=== PATIENT | male | born 1955 | race Caucasian/White ===

== ENCOUNTER 2024-03-28 16:03 | Outpatient (REF) | payer BC, SELFPAY ==
[2024-03-29 12:23] LABS: Influenza A PCR NEGATIVE (Negative); Influenza B PCR NEGATIVE (Negative); Resp Syncy Virus RNA Qual PCR NEGATIVE (Negative); SARS COV2 PCR INHOUSE NEGATIVE (Negative)
== END 2024-03-28 16:04 | disposition home or self-care (01) ==
LOC: HO.LNP 16:03
PROVIDERS: Visit Provider Physician Assistant
DX: J06.9 Acute upper respiratory infection, unspecified (principal); Z11.52 Encounter for screening for COVID-19; Z13.83 Encounter for screening for respiratory disorder NEC
CPT/HCPCS: 0241U

== ENCOUNTER 2024-03-28 16:03 | Outpatient (AMB) | payer BC, SELFPAY ==
--- NOTE | 2024-03-28 16:08 | AM.OFFWIN_ITS ---
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 Patient comes today because his cough has increased despite using an [id number] expectorant. Patient denies having any fevers but does describe having chills and fatigue. Review of Systems Const All systems reviewed & are unremarkable except as noted in HPI and below Denies body aches, Denies chills, Reports fatigue, Denies fever(s), Denies headache(s) and Denies weakness Eyes Reports no additional complaints ENT Reports no additional complaints and Denies headache(s) Card Denies chest pain, Denies dyspnea and Denies dyspnea on exertion Resp Reports cough, Denies hemoptysis, Denies dyspnea, Denies dyspnea on exertion and Denies wheezing GI Reports no additional complaints Reports no additional complaints Musc Reports no additional complaints Skin/Breast Reports system reviewed and no additional complaints, except as documented Neuro Reports no additional complaints, Denies headache(s) and Denies weakness Psych Reports no additional complaints Endo Reports no additional complaints and Reports fatigue Amos/Lymph Reports no additional complaints Aller/Immun Reports no additional complaints and Denies wheezing Physical Exam Patient is afebrile Const General: cooperative, healthy appearing, comfortable, no acute distress, well developed, alert, awake and Physically active; No ill appearing or lethargic Nutritional Appearance: average body habitus Orientation/consciousness: patient oriented x3 and No lethargic Limitations: no limitations HEENT Head: Yes normal to inspection and Yes normocephalic Ears: hearing grossly normal bilaterally, external ears normal, TM's normal bilaterally and EAC's normal General nose exam: Normal external nose present Face and sinus: Yes sinuses nontender Mouth: Normal oral and palatal mucosa present and moist mucous membranes Throat: Yes posterior oropharynx normal (There is no edema, erythema or exudates of the posterior oropharynx) and Yes postnasal drainage Eyes General: appearance normal, both eyes and all related structures Neck Lymphatic: no lymphadenopathy noted Resp Effort & Inspection: normal respiratory effort, able to speak in complete sentences, abnormal respiratory pattern, no audible wheezes, no cough, no respiratory distress and other (No tachypnea) Auscultation: clear to auscultation bilaterally Cardio Rate: regular rate Rhythm: regular rhythm Heart sounds: no murmurs Skin General skin exam: no rashes or lesions noted Neuro General: patient oriented x3 Psych Appearance: grossly normal Mental Status: mental status grossly normal Insight: Good insight present (Psych) Judgement: Good judgement present (Psych) Assessment & Plan Assessment & Plan (1) Bronchitis: Comment: SARS panel is ordered and results are pending. Code(s): J40 - Bronchitis, not specified as acute or chronic Plan: Mucinex OTC with increase clear fluids daily, tea with honey and rest as tolerated. Lungs are clear to auscultation bilaterally and chest x-ray is deferred at this time. Orders: Orders SARS-CoV2/FLU/RSV Today J06.9 - Acute upper respiratory infection, unspecified Coding Level of Care Code Est Pt Level 3 (70581) Diagnoses Bronchitis J40 Time Spent (min) 25
[2024-03-28 16:15] VITALS: BP 130/100; PULSE 68; TEMP 36.6; O2SAT 94
--- OUTSIDE RECORDS SUMMARY | 2024-03-28 18:08 | XMS_ITS | Encounter Summary ---
Author Organization [facility] [place] [address] Care Team Providers Care Surgical Territory Manager Name Role Phone Joe Quigley MD Primary Care Provider [phone] Encounter Details Date Type Department Care Team (Latest Contact Info) Description 03/22/2024 11:22 AM EST - 03/22/2024 11:59 PM [facility] Hospital Encounter XRAY - [place] [address] [place] [address] Neck pain Discharge Disposition: Home or Self Care Social History Tobacco Use Types Packs/Day Years Used Date Smoking Tobacco: Former Smokeless Tobacco: Never Alcohol Use Standard Drinks/Week Comments Not Currently 0 (1 standard drink = 0.6 oz pur e alcohol) Housing Instability Answer Date Recorde d Are you worried that in the next 2 months you may not have stable housing? No 01/26/2024 Food Access & Nutrition Answer Date Rec orded Do you have access to a vari ety of food including fruits and vegetables? Yes 01/26/2024 Access to Healthcare Answer Date Record ed Within the last 3 months, ho w many times did you visit the emergency department for your medical care? 0 01/26/2024 Health Literacy Answer Date Recorded How often do you need to hav e someone help you when you read instructions, pamphlets, or other written material from your doctor or pharmacy? Never 01/26/2024 Caregiver: How often do you need to have someone help you when you read instructions, pamphlets, or other written material from your doctor or pharmacy? Not on file 01/26/2024 Financial Risk Answer Date Recorded How hard is it for you to pa y for the very basics like food, housing, medical care, and air conditioning / heating? Not very hard 01/26/2024 Transportation Answer Date Recorded Has the lack of transportati on kept you from meetings, work, or from getting things needed for daily living? No Has the lack of transportati on kept you from medical appointments or from getting medications? No 01/26/2024 Social Isolation Answer Date Recorded How often do you feel lonely or isolated from th ose around you? Rarely 01/26/2024 Food Risk Answer Date Recorded Within the past 12 months we worried whether our food would run out before we got money to buy more. Never true 01/26/2024 Within the past 12 months th e food we bought just didn't last and we didn't have money to get more. Never true 01/26/2024 Dependent Care Answer Date Recorded Do you need help finding or paying for care for your loved ones. For example, children teacher or elderly care for an older adult? No 01/26/2024 Education Answer Date Recorded Do you think completing more education or training, like finishing a GED, going to college, or learning a trade, would be helpful for you? N/A 01/26/2024 Employment and Income Answer Date Recor ded During the last four weeks, have you been actively looking for work? Patient declined 01/26/2024 Living Situation Answer Date Recorded What is your living situation? 1 03/27/2023 Sex and Gender Information Value Date Recorded Sex Assigned at Not on file Gender Identity Not on file Sexual Orientation Not on file Job Start Date Occupation Industry Not on file Not on file Not on file documented as of this encounter Medications at Time of Discharge Medication Sig Dispensed Refills Start Date End Date atorvastatin (LIPITOR) 20 mg tablet Take 1 tablet (20 mg total) by mouth 1 (one) time each day. 90 tablet 3 01/30/2024 cyclobenzaprine (FLEXERIL) 5 mg tabletIndications:muscle spasm Take 1 tablet (5 mg total) by mouth 2 (two) times a day if needed for muscle spasms. 30 tablet 03/22/2024 05/21/2024 fluticasone propionate (FLONASE) 50 mcg/actuation nasal spray 2 Sprays by Nasal route daily. 12/23/2023 ibuprofen (ADVIL,MOTRIN) 600 mg tablet Take 1 tablet (600 mg total) by mouth 3 (three) times a day if needed for mild pain (pain). 60 tablet 03/22/2024 05/21/2024 lisinopriL (PRINIVIL,ZESTRIL) 5 mg tablet Take 1 tablet (5 mg total) by mouth 1 (one) time each day. 90 each 3 01/30/2024 01/29/2025 MULTIVITAMIN ORAL Take 1 Tablet by mouth daily. documented as of this encounter Discharge Disposition Disposition Code Departure Means Destination Home or Self Care documented in this encounter Plan of Treatment Upcoming Encounters Date Type Department Care Team (Late st Contact Info) Description 08/10/2024 9:00 AM EDT Office Visit Adult Medicine [facility] [place] [address] [place] [address] Joe Quigley MD [address] [place] [address] documented as of this encounter Procedures Procedure Name Priority Date/Time Associated Diagnosis Comments XR CERVICAL SPINE 4-5 VIEWS Routine 03/22/2024 11:39 AM EST Neck pain documented in this encounter Results * XR Cervical Spine 4-5 Views (03/22/2024 11:39 AM EST) Anatomical Region Laterality Modality Spine, C-spine Radiographic Nora ging 03/22/2024 7:43 PM EST Impressions 03/22/2024 7:48 PM EST 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 POS - [id number] -------- FINAL REPORT -------- Dictated By: Jumana Longoria Dictated Date: 03/22/2024 19:43 ET Assigned Physician: Jumana Longoria Reviewed and Electronically Signed By: Jumana Longoria Signed Date: 03/22/2024 19:48 ET Workstation ID: [id number] Transcribed By: Self Edit Transcribed Date: 03/22/2024 19:43 ET Narrative 03/22/2024 7:48 PM EST EXAM: Cervical spine x-ray HISTORY: Neck pain. ??No known injury. COMPARISON: None FINDINGS: 4 views performed. Cervical spine is visualized through the upper aspect of C7 on the lateral projection. No compression deformities. Intervertebral disc spaces are maintained. ??Multilevel facet arthropathy which is greater on the right. On the right, neural foraminal encroachment at C3-4 through C6-7. ??On the left, no significant neural foraminal encroachment. ?? Atlantoaxial distance is within normal limits. ??No abnormal thickening of the prevertebral soft tissues. Procedure Note Jumana Longoria MD - 03/22/2024 EXAM: Cervical spine x-ray HISTORY: Neck pain. No known injury. COMPARISON: None FINDINGS: 4 views performed. Cervical spine is visualized through the upper aspect of C7 on the lateralprojection. No compression deformities. Intervertebral disc spaces are maintained. Multilevel facet arthropathywhich is greater on the right. On the right, neural foraminal encroachment at C3-4 through C6-7. On theleft, no significant neural foraminal encroachment. Atlantoaxial distance is within normal limits. No abnormal thickening ofthe prevertebral soft tissues. IMPRESSION: Multilevel degenerative changes with right neural foraminalencroachment. POS - [id number] -------- FINAL REPORT -------- Dictated By: Jumana Longoria Dictated Date: 03/22/2024 19:43 ET Assigned Physician: Jumana Longoria Reviewed and Electronically Signed By: Jumana Longoria Signed Date: 03/22/2024 19:48 ET Workstation ID: [id number] Transcribed By: Self Edit Transcribed Date: 03/22/2024 19:43 ET Luciano Richey GEOLOGICAL TECHNICAL OFFICER IMG XR PROCEDURES documented in this encounter Visit Diagnoses Diagnosis Neck pain Cervicalgia documented in this encounter Additional Health Concerns Assessment Noted Time PHQ-9 Depression Total Score: 0 01/26/20 24 12:32 PM EST documented as of this encounter Care Teams Surgical Territory Manager Relationship Specialty Start Date End Date Joe Quigley MD [address] [place] [address] PCP - General Internal Medicine 01/07/15 documented as of this encounter
--- OUTSIDE RECORDS SUMMARY | 2024-03-28 18:08 | XMS_ITS | Clinical Summary ---
Author Organization [facility] [address] [place] [address] [address] [place] [address] Phone Care Team Providers Care Leaf Sucker Operator Name Role Phone Joe Quigley MD Primary Care Provider [phone] Allergies No known active allergies Medications Medication Sig Dispensed Refills Start Date End Date Status fluticasone propionate (FLONASE) 50 mcg/actuation nasal spray 2 Sprays by Nasal route daily. 12/23/2023 Active MULTIVITAMIN ORAL Take 1 Tablet by mouth daily. Active atorvastatin (LIPITOR) 20 mg tablet Take 1 tablet (20 mg total) by mouth 1 (one) time each day. 90 tablet 3 01/30/2024 Active lisinopriL (PRINIVIL,ZESTRIL) 5 mg tablet Take 1 tablet (5 mg total) by mouth 1 (one) time each day. 90 each 3 01/30/2024 01/29/2025 Active ibuprofen (ADVIL,MOTRIN) 600 mg tablet Take 1 tablet (600 mg total) by mouth 3 (three) times a day if needed for mild pain (pain). 60 tablet 03/22/2024 05/21/2024 Active cyclobenzaprine (FLEXERIL) 5 mg tabletIndications:mu scle spasm Take 1 tablet (5 mg total) by mouth 2 (two) times a day if needed for muscle spasms. 30 tablet 03/22/2024 05/21/2024 Active Active Problems Problem Noted Date Diagnosed Date Anemia 09/05/2023 Assessment & Plan (01/30/2024 10:07 AM EST): Recent history of mild anemia. Will follow CBC. Iron studies have been normal. B12 and folate were not low either. Orders: Complete blood count; Future Comprehensive metabolic panel; Future Thyroid stimulating hormone; Future Lipid panel with reflex to direct LDL; Future Benign prostatic hyperplasia without lower urinary tract symptoms 07/20/2022 Prostate nodule 07/20/2022 Near syncope 12/21/2021 Coronary artery disease invo lving [place] coronary artery of [place] heart with angina pectoris 09/01/2016 Overview (01/26/2024): Last Assessment & Plan: Patient continues to endorse symptoms reminiscent to those prior to his PCI in 2015. He did recently have a normal stress echocardiogram as outlined above. In light of his ongoing symptoms and significant history of coronary disease and family history, I will update a CTA to further evaluate for ischemia. He will continue on his current dose of statin and lisinopril. Patient instructed to call 911 or go to the emergency room should begin to experience chest pain or pressure lasting greater than 10 minutes and is not relieved with rest. We will update a resting echocardiogram to further evaluate for any valvular abnormalities. Elevated blood pressure reading 09/01/2016 Overview (01/26/2024): Last Assessment & Plan: Blood pressure well-controlled during today's exam with a reading of 138/82. He will continue on his current dose of lisinopril 20 mg. Educated on diet and lifestyle modification to help further lower blood pressure. Encouraged to follow a low- salt low-fat diet, make purposeful strides towards weight loss, and to continue to engage in routine aerobic exercise 30 minutes a day 4-5 times a week as tolerated. Assessment & Plan (01/30/2024 10:07 AM EST): Restart lisinopril at dose of 5mg, since he has not been taking lisinopril 20mg for 2 weeks. Orders: Complete blood count; Future Comprehensive metabolic panel; Future Thyroid stimulating hormone; Future Lipid panel with reflex to direct LDL; Future Hyperlipidemia 09/01/2016 Overview (01/26/2024): Last Assessment & Plan: Patient informed me that he recently saw his primary care physician Dr. Quigley. He has a fasting lipid profile ordered which the patient will complete this afternoon. Goal LDL less than 70 in the setting of coronary artery disease. He will continue on his current dose of Lipitor 20 mg and being mindful of his dietary fat intake. Assessment & Plan (01/30/2024 10:07 AM EST): Continue statin. Will check LFTs and Lipids. Orders: Complete blood count; Future Comprehensive metabolic panel; Future Thyroid stimulating hormone; Future Lipid panel with reflex to direct LDL; Future Encounters Date Type Department Care Team Description 03/22/2024 11:22 AM EST - 03/22/2024 11:59 PM EST Hospital Encounter [address] [phone] Neck pain Discharge Disposition: Home or Self Care 03/22/2024 11:00 AM EST Office Visit Adult [address] [phone] Luciano Richey NP Neck pain (Primary Dx) 01/30/2024 9:15 AM EST Office Visit Adult [address] [phone] Ike Gallardo PA Anemia, unspecified type (Primary Dx); Elevated blood pressure reading; Hyperlipidemia, unspecified hyperlipidemia type; Acute non-recurrent maxillary sinusitis 01/25/2024 Telephone Adult [address] [phone] Joe Quigley MD from Last 3 Months Immunizations Name Administration Dates Next Due Td, Unspecified 06/14/2003 Tdap Tetanus diptheria acell ular pertussis (Boostrix; Adacel) 7yo and older 04/04/2013 Surgical History Surgery Date Site/Laterality Comments OTHER SURGICAL HISTORY PROCEDURE: DENIES PREVIOUS SURGERY COLONOSCOPY 04/19/2005 PROCEDURE: HISTORICAL COLONOSCOPY; COMMENT: normal OTHER SURGICAL HISTORY 10/07/2016 PROCEDURE: COLON CA SCRN NOT HI RSK IND; COMMENT: normal; repeat in 10 yrs Medical History Medical History Date Comments H/O shoulder surgery 01/22/2015 DX:H/O shou lder surgery; COMMENT: After fall, Dr. Chavarria Family History Medical History Relation Name Comments Other: heart valve trouble Father M I as well Other: parkinson's disease Mother d ied at age 86 Relation Name Status Comments Brother Alive Father (Age 76) valvular h eart disease Mother (Age 86) parkinsons Sister 1 (Age 67) aaa Sister 2 choked Sister 3 Alive Sister 4 Alive Social History Tobacco Use Types Packs/Day Years Used Date Smoking Tobacco: Former Smokeless Tobacco: Never Tobacco Cessation:Counseling Given: Not Answered Alcohol Use Standard Drinks/Week Comments Not Currently [...] care for your loved ones. For example, childcare director or elderly care for an older adult? [...] file Not on file Not on file Obstetrics History Last Filed Vital Signs Vital Sign Reading Time Taken Comments Blood Pressure 140/84 03/22/2024 10:53 AM EST Pulse 84 03/22/2024 10:53 AM EST Temperature 36.6 ??C (97.9 ??F) 03/22/2024 10:[address] Respiratory Rate 16 03/22/2024 10:53 AM EST Oxygen Saturation 98% 01/30/2024 9:10 AM EST Inhaled Oxygen Concentration - - Weight 86.6 kg (191 lb) 03/22/2024 10:53 AM EST Height 188 cm (6' 2 ) 03/22/2024 10:53 AM EST Body Mass Index 24.52 03/22/2024 10:53 AM EST Plan of Treatment Upcoming Encounters Date Type Department Care Team (Late st Contact Info) Description 08/10/2024 9:00 AM EDT Office Visit Adult Medicine [facility] [address] [place] [address] Joe Quigley MD [address] [place] [address] Health Maintenance Due Date Last Done Comments Zoster Vaccines (1 of 2) 02/21/2004 Pneumococcal Vaccine: 65+ Years (1 of 1 - PCV) 2019 Falls Risk Assessment 02/13/2022 Medicare Annual Wellness Visit 02/13/2022 DTaP,Tdap,and Td Vaccines (3 - Td or Tdap) 04/04/2023 04/04/2013, 06/14/2003 COVID-19 Vaccine (4 - 2023-2 5 season) 2023 02/23/2021, 07/04/2020, 06/06/2020 Influenza Vaccine (#1) 2023 05/07/2019 Hypertension/CHF/CAD Annual BMP Blood Test 08/28/2024 08/29/2023, 08/29/2023 Depression Screening 01/25/2025 01/26/2024, 08/23/2023 Social Influencers of Health Screening 01/25/2025 01/26/2024 Colorectal Cancer Screening: Colonoscopy 10/07/2026 10/07/2016 Cholesterol Screening (Lipid Panel) 08/28/2028 08/29/2023, 08/29/2023 RSV Immunization Patients 60 + Years Old (1 - 1-dose 75+ series) 2029 Hepatitis C Screening Completed 04/04/2013 Abdominal Aortic Aneurysm (AAA) Screen Completed 05/29/2020 HIB Vaccines Aged Out No longer eligi ble based on patient's age to complete this topic HPV Vaccines Aged Out No longer eligi ble based on patient's age to complete this topic Hepatitis A Vaccines Aged Out No long er eligible based on patient's age to complete this topic Hepatitis B Vaccines Aged Out No long er eligible based on patient's age to complete this topic IPV Vaccines Aged Out No longer eligi ble based on patient's age to complete this topic MMR Vaccines Aged Out No longer eligi ble based on patient's age to complete this topic Meningococcal ACWY Vaccine Aged Out N o longer eligible based on patient's age to complete this topic RSV Immunization Patients Under 20 months Aged Out No longer eligible b ased on patient's age to complete this topic Varicella Vaccines Aged Out No longer eligible based on patient's age to complete this topic Procedures Procedure Name Priority Date/Time Associated Diagnosis Comments XR CERVICAL SPINE 4-5 VIEWS Routine 03/22/2024 11:39 AM EST Neck pain HM ANNUAL BMP BLOOD TEST Routine 08/29/2023 LIPID PANEL Routine 08/29/2023 DEPRESSION SCREENING Routine 08/23/2023 US ABDOMINAL AORTA REAL TIME SCREEN STUDY AAA Routine 05/29/2020 8:43 AM EDT Encounter for general adult medical examination without abnormal findings Encounter for screening for cardiovascular disorders COLONOSCOPY Routine 10/07/2016 HEPATITIS C SCREENING Routine 04/04/2013 from Last 3 Months or Most Recently Relevant to Health Maintenance Results * XR Cervical Spine 4-5 Views (03/22/2024 11:39 AM EST) Anatomical Region Laterality Modality Spine, C-spine Radiographic Nora ging 03/22/2024 7:43 PM EST Impressions 03/22/2024 7:48 PM EST 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 POS - [id number] -------- FINAL REPORT -------- Dictated By: Jumana Longoria Dictated Date: 03/22/2024 19:43 ET Assigned Physician: Jumana Longoria Reviewed and Electronically Signed By: Jumana Longoria Signed Date: 03/22/2024 19:48 ET Workstation ID: [id number] Transcribed By: Self Edit Transcribed Date: 03/22/2024 [...] changes with right neural foraminalencroachment. POS - [id number] -------- FINAL REPORT -------- Dictated By: Jumana Longoria Dictated Date: 03/22/2024 19:43 ET Assigned Physician: Jumana Longoria Reviewed and Electronically Signed By: Jumana Longoria Signed Date: 03/22/2024 19:48 ET Workstation ID: [id number] Transcribed By: Self Edit Transcribed Date: 03/22/2024 19:43 ET Luciano Richey NUCLEAR RADIOLOGIST IMG XR PROCEDURES * Annual BMP Blood Test (08/29/2023) [facility] Annual BMP Blood Test abstracted Historical Provider MD ODELL LI E * Lipid panel (08/29/2023) [facility] LDL/HDL Ratio 2 0 - 4 Triglycerides 37 0 - 150 mg/dL Cholesterol 119 0 - 200 mg/dL HDL 51 40 mg/dL LDL Cholesterol 61 0 - 100 mg/dL Blood Venous blood specimen / Unknown Historical Provider [facility] * Depression Screening (08/23/2023) [facility] Depression Screening abstracted Historical Provider MD ODELL LI E * US ABDOMINAL AORTA REAL TIME SCREEN STUDY AAA (05/29/2020 8:43 AM EDT) Anatomical Region Laterality Modality Ultrasound 05/01/2020 11:5 0 AM EST Narrative 05/29/2020 9:35 AM EDT History: Screening for abdominal aortic aneurysm. Ultrasound of the abdominal aorta: Some minimal atherosclerotic changes are noted. ??The abdominal aorta is otherwise normal in course, caliber and configuration. Proximal aortic AP diameter is 2.2 cm maximum. Mid aortic diameter is 1.8 cm, and distal aortic diameter is 1.6 cm. The common iliac arteries are normal in caliber as well. IMPRESSION: Negative screening examination for abdominal aortic aneurysm. Procedure Note Nader Bello MD - 02/23/2022 History: Screening for abdominal aortic aneurysm. Ultrasound of the abdominal aorta: Some minimal atherosclerotic changesare noted. The abdominal aorta is otherwise normal in course, caliber and configuration.Proximal aortic AP diameter is 2.2 cm maximum. Mid aortic diameter is 1.8 cm, and distalaortic diameter is 1.6 cm. The common iliac arteries are normal in caliber as well. IMPRESSION: Negative screening examination for abdominal aortic aneurysm. Joe Quigley MD IMG US PROCEDURES * Colonoscopy (10/07/2016) Colonoscopy no interpretation , abstracted Anatomical Region Laterality Modality Other Historical Provider MD BAIN MAINMEGAN E * Hepatitis C Screening (04/04/2013) Hepatitis C Screening abstracted Historical Provider MD BAIN MAINTENMELVINA E from Last 3 Months or Most Recently Relevant to Health Maintenance Care Teams Leaf Sucker Operator Relationship Specialty Start Date End Date Joe Quigley MD [address] [facility] [place] [address] PCP - General Internal Medicine 01/07/15
--- OUTSIDE RECORDS SUMMARY | 2024-03-28 18:08 | XMS_ITS | Data Portability ---
Author Organization [facility], [address] Address [address] [place] [address] Care Team Providers Care Mexican Food Maker Hand Name Role Phone [facility] Care Provider Assessment No assessment recorded. Plan of Treatment Reminders Order Date Submit Date Provider Last Modified By Organization Details Last Modified Time Details Appointments None recorded. Lab None recorded. Referral None recorded. Procedures None recorded. Surgeries None recorded. Imaging XR, chest, 2 view 2022 023 [facility], [address] [place] [address], [address], 3 16:24:21 Medication Orders azithromyci n 250 mg tablet 2022 023 [facility]acy #2339, [address] [place] [address], [address], 3 14:48:39 albuterol sulfate HFA 90 mcg/actuati on aerosol inhaler 2022 023 [facility] #2339, [address] [place], [address], 3 14:48:39 Tessalon Perles 100 mg capsule 2022 023 [facility] #2339, [address] [place], [address], 3 14:48:39 Patient TargetsNo targets recorded. Patient Instructions Encounter Date Encounter Id Patient Instructions Last Modified By Organization Details Last Modified Time 03/20/2022 [id number] cough: care instructions [email or web address] Not available 03/20/2022 14:47:19 Reason for Referral None Reported. Results Created Date Observation Date Name Description Value Unit Range Abnormal Flag Note LastModifiedBy Organization Detail LastModifiedTime 03/20/19 23 03/20/2022 XR, chest , 2 view No observ ation record ed. [email or web address] [facility] [address] [place], [address], 03/20/2022 17:12:27 03/22/19 imagi ng/di agnos tic resul t No observ ation record ed. [email or web address] Not Available 2022 08:58:16 Result Notes None recorded. Problems Name Problem SNOMED Code Status Onset Date Resolution Date Notes Provider Name and Address Organization Details Recorded Time Hypercholestero lemia 68546622 Active 2022 NADJA DEPINTO null, PA - [facility] 3 14:20:41 Hypertensive disorder 45257214 Active 2022 NADJA DEPINTO null, PA - [facility] 3 14:21:06 Problem Notes None recorded. Procedures Surgical History Date Name Laterality Status Provider Name and Address Organization Details Recorded Time procedure on shoulder completed NADJA DEPINTO PA - [facility] 03/20/2022 14:21:32 Imaging Results Imaging Date Name Status LastModified by Organiz ation Details LastModified Time 03/20/2022 XR, chest, 2 view completed [email or web address] [facility] [address] [place], [address], 03/20/2022 17:12:27 03/22/2022 imaging/diag nostic result completed [email or web address] Information not available 03/22/2022 08:58:16 Procedure Notes None recorded. Medical Equipment None Reported. Allergies No known drug allergies Medications Name Sig Start Date Stop Date Status Note LastModified by Organization Details LastModified Time atorvastati n 20 mg tablet TAKE 1 TABLET BY MOUTH EVERY DAY active Not Available Not Available No t Available azithromyci n 250 mg tablet TAKE 2 TABLETS (500 MG) BY ORAL ROUTE ONCE DAILY FOR 1 DAY THEN 1 TABLET (250 MG) BY ORAL ROUTE ONCE DAILY FOR 4 DAYS 2022 active Not Available Not Available Not Avai lable lisinopril 20 mg tablet TAKE 1 TABLET BY MOUTH EVERY DAY active Not Available Not Available No t Available prednisone 20 mg tablet TAKE 1 TABLET BY MOUTH EVERY DAY 03/20 completed Not Available Not Available Not Available doxycycline monohydrate 100 mg tablet TAKE 1 TABLET BY MOUTH TWICE A DAY FOR 7 DAYS 03/20 completed Not Available Not Available Not Available Tessalon Perles 100 mg capsule Take 1 capsule 3 times a day by oral route. 2022 active Not Available Not Available Not Avai lable albuterol sulfate HFA 90 mcg/actuati on aerosol inhaler Inhale 2 puffs every 4 hours by inhalatio n route. 2022 active Not Available Not Available Not Avai lable fluticasone propionate 50 mcg/actuati on nasal spray,suspe nsion SPRAY 1 SPRAY INTO EACH NOSTRIL EVERY DAY 03/20 completed Not Available Not Available Not Available Vitals Date Recorded Body height Provider Name an d Address Organization Details Last Updated DateTime 03/20/2022 182.88 cm NADJA DEPINTO PA - [facility] 0 03/20/2022 14:19:12 Date Recorded Body mass index (BMI) Body weight Provider Name and Address Organization Details Last Updated DateTime 03/20/2022 26 kg/m2 53916.74 g NADJA DEPINTO PA - [facility] 03/20/2022 14:19:20 Date Recorded Pain severity - 0-10 verbal numeric rating [Score] - Reported Provider Name and Address Organization Details Last Updated DateTime 03/20/2022 0 NADJA DEPINTO PA - [facility] 0 03/20/2022 14:19:57 Date Recorded Body temperature Provider Name a nd Address Organization Details Last Updated DateTime 03/20/2022 97.6 [degF] NADJA DEPINTO PA - [facility] 03/20/2022 14:22:28 Date Recorded Respiratory rate Provider Name a nd Address Organization Details Last Updated DateTime 03/20/2022 18 /min NADJA DEPINTO PA - [facility] 0 03/20/2022 14:22:30 Date Recorded Oxygen saturation Oxygen saturation in Arterial blood by Pulse oximetry Provider Name and Address Organization Details Last Updated DateTime 03/20/2022 99 % 99 % NADJA PALMA PA - [facility] 03/20/2022 14:22:57 Date Recorded Heart rate Provider Name an d Address Organization Details Last Updated DateTime 03/20/2022 84 /min NADJA PALMA PA - [facility] 0 03/20/2022 14:22:59 Date Recorded Systolic blood pressure Diastolic blood pressure Provider Name and Address Organization Details Last Updated DateTime 03/20/2022 170 mm[Hg] 89 mm[Hg] NADJA PALMA PA - [facility] 03/20/2022 14:22:51 Social History Question Answer Notes LastModified by Organizat ion Details LastModified Time Tobacco Smoking Status Never Smoker NADJA LOUIE merrill PA - [facility] 03/20/2022 14:21:41 What Is Your Level Of Alcohol Consumption? None Information not available 03/20/2022 Do You Use Any Illicit Or Recreational Drugs? No Information not available 03/20/2022 Have You Recently Traveled Abroad? No Information not available 03/20/2022 Do You Or Have You Ever Used Any Other Forms Of Tobacco Or Nicotine? No Information not available 03/20/2022 Sex: Unknown Functional Status None recorded. Mental Status None recorded. Family History Relationship Description Onset Age of this Age Resolved Age Notes LastModified by Organization Details LastModified Time Father No current problems or disability Not available 03/20 14:21:22 Mother No current problems or disability Not available 03/20 14:21:22 Medical History No medical history recorded. Immunizations Vaccine Type Date Status Note Provider Nam e and Address Organization Details Recorded Time COVID-19, mRNA, LNP-S, PF, 100 mcg/0.5mL dose or 50 mcg/0.25mL dose 02/23/2021 completed NADJA LOUIE garfield, PA - [facility] 03/20/2022 14:20:01 COVID-19, mRNA, LNP-S, PF, 100 mcg/0.5mL dose or 50 mcg/0.25mL dose 07/04/2020 completed NADJA DEPINTO null, PA - [facility] 03/20/2022 14:20:01 COVID-19, mRNA, LNP-S, PF, 100 mcg/0.5mL dose or 50 mcg/0.25mL dose 06/06/2020 completed NADJA DEPINTO null, PA - [facility] 03/20/2022 14:20:01 Tdap 04/04/2013 completed NADJA DEPINTO null, PA - [facility] 03/20/2022 14:20:01 Influenza, high-dose, trivalent, PF 05/07/2019 completed NADJA DEPINTO null, PA - [facility] 03/20/2022 14:20:01 Td(adult) unspecified formulation 06/14/2003 completed NADJA DEPINTO null, PA - [facility] 03/20/2022 14:20:01 Past Encounters Encounter ID Performer Location Encounter Start Date Encounter Closed Date Diagnosis/Indication Diagnosis SNOMED-CT Code Diagnosis ICD10 Code Diagnosis Note [id number] [address] [place] [address] 02/18/2017 08:44:04 02/18/2017 09:08:19 [id number] [address] [place] [address] 02/27/2019 12:21:22 02/27/2019 13:37:50 [id number] [address] [place] [address] 02/03/2017 09:22:09 02/03/2017 09:57:40 [id number] [address] [place] [address] 01/06/2016 12:32:40 01/06/2016 13:40:27 [id number] [address] [place] [address] 04/27/2016 10:03:01 04/27/2016 10:53:55 [id number] [address] [place] [address] 01/06/2016 12:36:13 01/06/2016 13:40:31 [id number] Andrea Lim DO [address] [place] [address] 03/20/2022 13:40:24 03/20/2022 15:24:27 Cough [id number] R05.9 Given Hx and Sx will Rx Abx and albuterol Rodrigo malik prn coughTrial of mucinex prn congestion Humidified airrest, fluidstyle nol/ibu prn Patient advised to follow up as needed for worsening symptoms or no improvemen t. Discussed concerning red flags with patient and reasons to follow up in the Emergency Department urgently. Health Concerns Section Related Observation LastModified by Organization Detai ls LastModified Time None Recorded Concern Status LastModified by Organization Details LastModified Time None Recorded Advance Directives Directive None Recorded Payers Encounter Date Sequence Insurance Name Policy Number Policy Samuel Covered Member ID Samuel Member ID Guarantor Name 02/27/2019 1 [facility]: MEDICARE HMO BLUE (MEDICARE REPLACEMENT HMO) [id number] [facility] [id number] 03/20/2022 1 [facility]: MEDICARE HMO BLUE (MEDICARE REPLACEMENT HMO) [id number] [facility] [id number] [facility] Notes Date Note Type Note Provider Name and Address Organization Details Recorded Time 03/20/2022 text/html CoughReported bypatient.Notes:67 yo maleHad sinus problems 1 wk ago that went away and now has cough with brown phlegm, weak and congestion x 5 days. Had neg COVID yesterday at home repeat BP 164/81 non [place] asthma No feverNo chillsNo difficulty breathing or respiratory distressNo CPNo ear painNo sore throatNo Abdominal painNo nauseaNo vomitingNp diarrheaNo myalgiaNo fatigueNo rashNo HANo dizzinessNo recent travelNo known sick contacts Andrea Lim DO [address] [place], [address], PA - [facility] 03/20/2022 15:11:37
--- OUTSIDE RECORDS SUMMARY | 2024-03-28 18:08 | XMS_ITS | Encounter Summary ---
Author Organization [facility] Address [address] [place] [address] Care Team Providers Care Fly Frame Tender Name Role Phone Joe Quigley MD Primary Care Provider [phone] Encounter Details Date Type Department Care Team (Late st Contact Info) Description 03/22/2024 11:00 AM EST Office Visit Adult Medicine [facility] [place] [address] [place], [place] [phone] Luciano Richey, LEARNING MANAGER [address] [place], [place] Neck pain (Primary Dx) Social History Tobacco Use Types Packs/Day Years [...] care for your loved ones. For example, assistant child care teacher or elderly care for an older [...] on file documented as of this encounter Last Filed Vital Signs Vital Sign Reading Time Taken Comments Blood Pressure 140/84 03/22/2024 10:53 AM EST Pulse 84 03/22/2024 10:53 AM EST Temperature 36.6 ??C (97.9 ??F) 03/22/2024 10:[address] Respiratory Rate 16 03/22/2024 10:53 AM EST Oxygen Saturation - - Inhaled Oxygen Concentration - - Weight 86.6 kg (191 lb) 03/22/2024 10:53 AM EST Height 188 cm (6' 2 ) 03/22/2024 10:53 AM EST Body Mass Index 24.52 03/22/2024 10:53 AM EST documented in this encounter Ordered Prescriptions Prescription Sig Dispensed Refills Start Date End Da te cyclobenzaprine (FLEXERIL) 5 mg tabletIndications:muscle spasm Take 1 tablet (5 mg total) by mouth 2 (two) times a day if needed for muscle spasms. 30 tablet 03/22/2024 05/21/2024 ibuprofen (ADVIL,MOTRIN) 600 mg tablet Take 1 tablet (600 mg total) by mouth 3 (three) times a day if needed for mild pain (pain). 60 tablet 03/22/2024 05/21/2024 documented in this encounter Progress Notes * Cristopher Sawyer MA - 03/22/2024 11:00 AM EST Right said neck and shoulder pain for 1 month. Would like for you to listen to lungs as well * Luciano Richey NP - 03/22/2024 11:00 AM EST PATIENT'S PCP: Joe Quigley MD LAST VISIT IN THIS DEPARTMENT: 01/30/2024 Daryn Shaver is a 69 y.o. (: 1955) male who presents today for: No chief complaint on file. SUBJECTIVE Daryn complains of neck pain that began 1 month ago. Patient has no history of episodic neck pain or cervical disease that has been self limited. Symptoms have been unchanged. The pain is positional with movement of neck with radiation of pain down to the shoulder. Patient denies numbness, tingling, weakness in the arms. ROS Review of Systems Constitutional: Negative. Respiratory: Negative. Cardiovascular: Negative. Musculoskeletal: Positive for neck pain. Skin: Negative. Neurological: Negative. Hematological: Negative. The following portions of the patient's chart were reviewed in this encounter and updated as appropriate: OBJECTIVE Vitals: 03/22/24 1053 BP: (!) 140/84 BP Location: Left arm Patient Position: Sitting BP Cuff Size: Adult Pulse: 84 Resp: 16 Temp: 36.6 ??C (97.9 ??F) TempSrc: Temporal Weight: 86.6 kg (191 lb) Height: 1.88 m (74 ) Body mass index is 24.52 kg/m??. Plan is deferred until next visit No Known Allergies Active Medication: Current Outpatient Medications Medication Instructions atorvastatin (LIPITOR) 20 mg, oral, Daily cyclobenzaprine (FLEXERIL) 5 mg, oral, 2 times daily PRN fluticasone propionate (FLONASE) 50 mcg/actuation nasal spray 2 Sprays by Nasal route daily. ibuprofen (ADVIL,MOTRIN) 600 mg, oral, 3 times daily PRN lisinopriL (PRINIVIL,ZESTRIL) 5 mg, oral, Daily MULTIVITAMIN ORAL Take 1 Tablet by mouth daily. Physical Exam Vitals reviewed. Constitutional: Appearance: Normal appearance. HENT: Head: Normocephalic and atraumatic. Cardiovascular: Rate and Rhythm: Normal rate and regular rhythm. Pulses: Normal pulses. Heart sounds: Normal heart sounds. Pulmonary: Effort: Pulmonary effort is normal. Breath sounds: Normal breath sounds. Musculoskeletal: General: Tenderness present. Normal range of motion. Cervical back: Normal range of motion and neck supple. Pain with movement present. Comments: Right side neck pain Skin: General: Skin is warm and dry. Neurological: General: No focal deficit present. Mental Status: He is alert and oriented to person, place, and time. Imaging HISTORY: pay sttention to acromium TECHNIQUE: 4 views of the left shoulder COMPARISON: Shoulder radiograph from 04/23/2013 FINDINGS: No acute fracture or dislocation at the shoulder. There are large osteophytes along the distal clavicle with moderate narrowing at the AC joint. Focal calcifications are present superior to the distal clavicle likely from degenerative changes. There is spurring along the undersurface of the acromion. Visualized lung is clear. IMPRESSION: Moderate degenerative changes at the AC joint. Laboratory: No pertinent labs Assessment & Plan Neck pain Patient is to rest the injured area as much as possible. Also recommend using warm moist heat to further help with muscle relaxation. Xray of the Cervical spine order Prescription for Pain & Inflammation Tx: Ibuprofen 600 mg orally every 6-8 hours, PRN, Max 2400mg/day, and Cyclobenzaprine 5 mg orally 3 times daily PRN, for back spasm. We discussed the drowsing effect of medication and cautioned the patient not to drive/operate any heavy machinery while on medication. was given to the patient. Patient was educated over the adverse effects of these medicatio ns. I instructed the patient that we will attempt conservative therapy for 2-3 weeks. I instructed the patient to make an appt to follow up if no improvement or worsening after that time. May consider referral at that time to Physical Therapy and Orthopedic for further evaluation and treatment. Orders: cyclobenzaprine (FLEXERIL) 5 mg tablet; Take 1 tablet (5 mg total) by mouth 2 (two) times a day if needed for muscle spasms. XR Cervical Spine 2-3 Views; Future FOLLOW-UP: Follow up if symptoms worsen or fail to improve. Luciano Richey NP ADULT MEDICINE [address] Today's documentation was made using voice recognition software.This note may contain grammatical errors secondary to this software. documented in this encounter Plan of Treatment Upcoming Encounters Date Type Department Care Team (Late st Contact Info) Description 08/10/2024 9:00 AM EDT Office Visit [address] [phone] Joe Quigley MD [address] [place] [address] documented as of this encounter Visit Diagnoses Diagnosis Neck pain- Primary Cervicalgia documented in this encounter Additional Health Concerns Assessment Noted Time PHQ-9 Depression Total Score: 0 01/26/20 24 12:32 PM EST documented as of this encounter Care Teams Fly Frame Tender Relationship Specialty Start Date End Date Joe Quigley MD [address] [place] [address] PCP - General Internal Medicine 01/07/15 documented as of this encounter
== END 2024-03-28 16:32 | disposition home or self-care (01) ==
PROVIDERS: Visit Provider Physician Assistant
DX: J40 Bronchitis, not specified as acute or chronic (principal)

== ENCOUNTER 2024-08-27 09:39 | Outpatient (REF) | payer BC, SELFPAY ==
--- NOTE | ~2024-08-27 | US_ITS ---
CLINICAL HISTORY: TIA US Bilateral Carotid Duplex Comparison: None provided Findings: No significant plaque within the common carotid arteries. No significant plaque within the carotid bulbs. Color doppler and spectral tracings normal. Peak systolic velocities: Right CCA: 107 cm/s. Right ICA: 113 cm/s. ICA/CCA ratio: Normal. Right ECA: 109 cm/s. Right vertebral artery flow antegrade. Right subclavian artery: 106 cm/sec Left CCA: 117 cm/s. Left ICA: 104 cm/s. ICA/CCA ratio: Normal. Left ECA: 110 cm/s. Left vertebral artery flow antegrade. Left subclavian artery: 117 cm/sec IMPRESSION: Normal carotid velocities, no significant stenosis (0-49% stenosis). This document has been electronically signed by: Cecilia Vargas MD on 08/28/2024 15:29:07
--- OUTSIDE RECORDS SUMMARY | 2024-08-27 10:25 | XMS_ITS | Data Portability ---
Author Organization [facility], [address] Address [address] [place] [address] Care Team Providers Care Director Mba Name Role Phone [facility] Care Provider Assessment No assessment recorded. Plan of Treatment Reminders Order Date Submit Date Provider Last Modified By Organization Details Last Modified Time Details Appointments None recorded. Lab None recorded. Referral None recorded. Procedures None recorded. Surgeries None recorded. Imaging XR, chest, 2 view 2022 023 [facility], [address] [place] [address], [address], 3 16:24:21 Medication Orders azithromyci n 250 mg tablet 2022 023 [facility] #2339, [address] [place], [address], 3 14:48:39 albuterol sulfate HFA 90 mcg/actuati on aerosol inhaler 2022 023 [facility] #2339, [address] [place], [address], 3 14:48:39 Tessalon Perles 100 mg capsule 2022 023 [facility] #2339, [address] [place], [address], 3 14:48:39 Patient TargetsNo targets recorded. Patient Instructions Encounter Date Encounter Id Patient Instructions Last Modified By Organization Details Last Modified Time 03/20/2022 [id number] cough: care instructions [email or web address] Not available 03/20/2022 14:47:19 Reason for Referral None Reported. Results Created Date Observation Date Name Description Value Unit Range Abnormal Flag Note LastModifiedBy Organization Detail LastModifiedTime 03/20/19 23 03/20/2022 XR, chest , 2 view No observ ation record ed. [email or web address] [facility] [address] [place], [address], 03/20/2022 17:12:27 03/22/19 23 imagi ng/di agnos tic resul t No observ ation record ed. [email or web address] Not Available 2022 08:58:16 Result Notes None recorded. Problems Name Problem SNOMED Code Status Onset Date Resolution Date Notes Provider Name and Address Organization Details Recorded Time Hypercholestero lemia 20249912 Active 2022 NADJA DEPINTO null, PA - [facility] 3 14:20:41 Hypertensive disorder 23449581 Active 2022 NADJA DEPINTO null, PA - [facility] 3 14:21:06 Problem Notes None recorded. Procedures Surgical History Date Name Laterality Status Provider Name and Address Organization Details Recorded Time procedure on shoulder completed NADJA SINAIINTO PA - [facility] 03/20/2022 14:21:32 Imaging Results None recorded. Procedure Notes None recorded. Medical Equipment None [...] Not Available Vitals Date Recorded Body height Body mass index (BMI) Body weight Body temperature Respiratory rate Oxygen saturation Oxygen saturation in Arterial blood by Pulse oximetry Heart rate Systolic blood pressure Diastolic blood pressure Provider Name and Address Organization Details Last Updated DateTime 182.88 cm 26 kg/m2 16467.7 4 g 97.6 [degF] 18 /min 99 % 99 % 84 /min 170 mm[Hg] 89 mm[Hg] NADJA PALMA [employer] 14:22:51 Social History Question Answer Notes LastModified by meevl Details LastModified Time Tobacco Smoking Status Never Smoker NADJA merrill [facility] 03/20/2022 14:21:41 Have You Recently Traveled Abroad? No Information not available 03/20/2022 Sex: Unknown Functional Status Question Answer Note LastModified by meevl Details LastModified Time Do you use any illicit or recreational drugs? No Information not available 03/20/2022 Do you or have you ever used any other forms of tobacco or nicotine? No Information not available 03/20/2022 What is your level of alcohol consumption? None Information not available 03/20/2022 Mental Status None recorded. Family History Relationship [...] or 50 mcg/0.25mL dose 02/23/2021 completed [facility] DEPINTO null, [facility] [...] SNOMED-CT Code Diagnosis ICD10 Code Diagnosis Note [id number] [address] [facility] [place] [address] 02/18/2017 08:44:04 02/18/2017 09:08:19 [id number] [address] [address] [place] [address] 02/27/2019 12:21:22 02/27/2019 13:37:50 [id number] [address] [address] [place] [address] 02/03/2017 09:22:09 02/03/2017 09:57:40 [id number] [address] [place] [address] 01/06/2016 12:32:40 01/06/2016 13:40:27 [id number] [address] [facility] [place] [address] 04/27/2016 10:03:01 04/27/2016 10:53:55 [id number] [facility] [place] [address] 01/06/2016 12:36:13 01/06/2016 13:40:31 [id number] Andrea Lim DO [facility] [address] [place] [address] 03/20/2022 13:40:24 03/20/2022 15:24:27 Cough [id number] R05.9 Given Hx and Sx will Rx [...] Recorded Advance Directives Directive None Recorded Payers Insurance Date Sequence Insurance Name Policy Number Policy Samuel Covered Member ID Samuel Member ID Guarantor Name 03/20/[address] [facility]: MEDICARE HMO BLUE (MEDICARE REPLACEMENT HMO) [id number] Daryn Shaver [id number] D[address] Shaver Notes Date Note Type Note Provider Name [...] dizzinessNo recent travelNo known sick contacts Andrea Lim, DO [address] [place], [address], [place] - [facility] 03/20/2022 15:11:37
== END 2024-08-27 09:40 | disposition home or self-care (01) ==
LOC: HO.US 09:39
PROVIDERS: PCP Internal Medicine; Visit Provider Psychiatry & Neurology Neurology
DX: G45.9 Transient cerebral ischemic attack, unspecified (principal)
CPT/HCPCS: 93880

== ENCOUNTER → 2024-08-27 09:56 | Outpatient (BNV) | payer BC, SELFPAY | PROVIDERS: PCP Internal Medicine; Visit Provider Radiology Diagnostic Radiology | DX: G45.9 Transient cerebral ischemic attack, unspecified (principal) | CPT/HCPCS: 93880 ==

== ENCOUNTER 2024-10-30 10:47 | Outpatient (AMB) | payer BC, SELFPAY ==
--- NOTE | 2024-10-30 11:03 | A.OFFVIS_ITS ---
Intake Visit Reasons: follow up Allergies No Known Allergies Allergy (Verified 03/28/24 16:16) HPI Comments Details: This is a 69-year-old man with a history of mild hypertension, hyperlipidemia, and coronary artery disease, status post coronary stent x1 in 2013.? He stays active, runs 4 days a week and is in the gym 3 days a week and does 100 pushups in the morning? ( 25 X4).? 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 He reports that in the last one year, he's had 4 or 5 very brief episodes lasting less than 45 seconds, where he suddenly goes blank, feels confused and gets diaphoretic.? The last episode occurred in April 2024 while he was singing a song that he knows well and strumming on his guitar.? He said that he suddenly went blank, forgot the cords and the words.? Within 45 seconds the episode had cleared.? He found that he was quite diaphoretic, which lasted a little bit longer.? One episode occurred at home while he was talking to his and was similarly short in duration.? He has no after effects from the spell and now feels back to normal. He has not had any spells since last 3 months. He has?also noted intermittent fine tremor in his right hand when he is holding something.? His mother had a different kind of tremor and was diagnosed with Parkinson's disease. [facility] Medical History (Updated 10/30/24 @ 11:08 by Cesario Perez MD) TIA (transient ischemic attack) Review of Systems Const Details: Sleep:? Difficulty getting to sleepdenies.? Difficulty maintaining sleepdenies?.? Urge to move legsdenies.? Teeth grindingdenies.? Shouting or Kicking during sleep denies.? Abnormal behavior during sleepdenies.? Excessive sleepdenies.? Snoring denies.? Daytime sleepinessdenies. ???General/Constitutional:? Change in appetitedenies.? Chillsdenies.? Fatiguedenies.? Feverdenies.? Weight gaindenies.? Weight lossdenies. ???Ophthalmologic:? Blurred visiondenies.? Diminished visual acuitydenies. ???ENT:? Stuffinessdenies.? Decreased hearingdenies.? Dry mouthdenies.? Ear paindenies.? Nosebleeddenies.? Ringing in the earsdenies.? Sinus paindenies.? Sore throat denies.? Swollen glandsdenies. ???Endocrine:? Cold intolerancedenies.? Excessive thirstdenies.? Frequent urinationdenies.? Heat intolerancedenies. ???Respiratory:? Shortness of breathdenies.? Chest paindenies.? Coughdenies. ???Breast:? Breast lumpdenies.? Nipple dischargedenies. ???Cardiovascular:? Chest pain at restdenies.? Chest pain with exertiondenies.? Claudicationdenies .? Dizzinessdenies.? Fluid accumulation in the legsdenies.? Irregular heartbeat denies.? Palpitationsdenies. ???Gastrointestinal:? Abdominal paindenies.? Constipationdenies.? Diarrheadenies.? Difficulty swallowingdenies.? Heartburndenies.? Nauseadenies.? Rectal bleedingdenies. ???Hematology:? Easy bruisingdenies.? Prolonged bleedingdenies. ???Genitourinary:? Frequent urinationdenies.? Urgencydenies.? Incontinencedenies.? Erectile Dysfunctiondenies. ???Musculoskeletal:? Neck paindenies.? Back paindenies.? Muscle achesdenies.? Painful jointsdenies.? Sciaticadenies.? Weaknessdenies. ???Podiatric:? Difficulty walkingdenies.? Foot numbnessdenies. ???Neurologic:? Difficulty swallowingdenies.? Balance difficultydenies.? Coordinationnormal.? Difficulty speakingdenies.? Dizzinessdenies.? Faintingdenies.? Gait abnormality denies.? Headachedenies.? Loss of strengthdenies.? Loss of use of extremity denies.? Low back paindenies.? Memory lossdenies.? SeizuresTransient episodes of going blank.?.? Ticsdenies.? Tingling/Numbnessadmits.? Transient loss of vision denies.? Tremoradmits. ???Psychiatric:? Anxietydenies.? Auditory/visual hallucinationsdenies.? Delusionsdenies.? Depressed mooddenies.? Stressorsdenies.? Substance abusedenies.? Suicidal thoughtsdenies. Physical Exam Neuro Other: Neurological: Abnormal neurological findings:??none.?Mental Status:??alert and oriented X 3,?Normal attention, orientation, memory and affect.?Cranial Nerves:??Pupils are equal, round and reactive to light. Fundoscopy shows normal disc bilaterally. External occular muscles are intact. Visual waller are full, no ptosis. Face is symmetrical, no facial weakness or droop. Facial sensations are normal. Tongue protrudes in midline. Palate elevates symmetrically. Shoulder shrugging is normal..?Motor Examination:??Normal muscle tone, bulk and strength,?No atrophy or fasciculations,?No drift of the extended upper extremities,?Deep tendon reflexes are 2+?,?Plantars are flexor?.?Motor Strength:?Proximal Muscles (out of 5):5Distal Muscles (out of 5):5Neck Flexors (out of 5):5Neck Extensors (out of 5):5Deltoid (out of 5):5Biceps (out of 5):5Triceps (out of 5):5Serratus Anterior (out of 5):5Wrist Extensors (out of 5):5APB (out of 5):5Finger Spread (out of 5):5Ileopsoas (out of 5):5Quadriceps (out of 5):5Hamstrings (out of 5):5Tibialis Anterior (out of 5):5Peronei (out of 5):5EDB (out of 5):5Gastrocnemius (out of 5):5Straight Leg Raising:??90 degrees.?Sensory Exam:??Normal light touch, temperature, pinprick, vibration and joint-position sensations?,?Rhomberg sign is absent.?Coordination:??no ataxia,?no titubation,?zjxpfj-oy-eome, veie-jugc-nebu test and rapid alternating movements were normal.?Gait Exam:??Within normal limits.?Cerebellar Signs:??Albjjw-ra-zqfh and orfv-dy-ckkz is normal,?no dysdiadochokinesia?.?Extrapyramidal System:??No tremor, rigidity with normal facial expressions,?No bradykinesia, no bradyphrenia. Normal arm swing and posture. No propulsion or retropulsion.?Speech:??Normal,?no dysphasia or dysarthria..? Mini Mental Status Exam: Level of Consciousness:??Alert.?Orientation:??Knows correct year, month, date, day and season,?Knows correct city, county and state. Knows correct location and floor.?Registration:??Able to register 3 objects.?Attention:??Serial 7's performed accurately.?Recall:??Able to recall 3 out of 3 objects.?Lang uage:??Normal spontaneous speech, fluency, repetition,naming, comprehension, reading and writing.?Total Score:??30/30.? General Examination: GENERAL APPEARANCE:??normal,?in no acute distress.?HEAD:??normocephalic,?atraumatic.?EYES:??sclera non- icteric,?conjunctiva clear.?EARS:??auditory canal clear,?tympanic membrane intact, clear.?NOSE:??no lesions.?ORAL CAVITY:??gums normal,?mucosa moist,?no lesions.?THROAT:??clear.?NECK/THYROID:??no cervical lymphadenopathy,?thyroid normal,?neck supple, full range of motion,?no carotid bruit.?SKIN:??no rashes,?no significant birthmarks.?HEART:??S1, S2 normal,?no murmurs.?LUNGS:??clear anteriorly and posteriorly.?CHEST:??no gross rib deformity,?clear to auscultation.?BACK:??normal exam of spine.?EXTREMITIES:??no edema.?PERIPHERAL PULSES:??normal.?PSYCH:??alert, oriented,?cognitive function intact,?cooperative with exam.? Results Reviewed Results Reviewed: 07/12/24 MRI brain: minimal white matter microvacsular changes. 08/28/24 Carotid US normal. Assessment & Plan Assessment & Plan (1) Physiological tremor: Code(s): R25.1 - Tremor, unspecified Category: Medical (2) TIA (transient ischemic attack): Code(s): G45.9 - Transient cerebral ischemic attack, unspecified Category: Medical (3) Partial seizure: Code(s): R56.9 - Unspecified convulsions Category: Medical Plan Out pt EEG Orders: Orders EEG electroencephalogram Today R56.9 - Unspecified convulsions Coding Level of Care Code Est Pt Level 4 (41619) Diagnoses Physiological tremor R25.1 TIA (transient ischemic attack) G45.9 Partial seizure R56.9
--- OUTSIDE RECORDS SUMMARY | 2024-10-30 11:39 | XMS_ITS ---
Author Name [facility] Organization Unknown Care Team Organization Name Specialty Phone Email Start Date End Da calvin [facility] 01/12/2022 10/24/2023
--- OUTSIDE RECORDS SUMMARY | 2024-10-30 11:40 | XMS_ITS | Clinical Summary ---
Author Organization [facility] Address [address] [place] [id number] Phone Care Team Providers Care Process Helper Name Role Phone Joe Quigley MD Primary Care Provider [phone] Allergies No known active allergies Medications atorvastatin (LIPITOR) 80 MG tablet Take 80 mg by mouth daily. 03/19/2019 Active lisinopril (PRINIVIL,ZESTRI L) 20 MG tablet Take 20 mg by mouth daily. 03/29/2019 Active Active Problems No known active problems Social History Tobacco Use Types Packs/Day Years Used Date Smoking Tobacco: Never Smokeless Tobacco: Never Alcohol Use Standard Drinks/Week Comments Yes 0 (1 standard drink = 0.6 oz pur e alcohol) social Education Answer Date Recorded Are you interested in more education? Not on eduardo e 07/02/2022 Are you concerned about learning? Not on file 07/02/2022 No 07/02/2022 No 07/02/2022 Digital Access Answer Date Recorded No 07/31/2022 No 07/31/2022 No 07/31/2022 Reliable internet access at home? Not on file 07/31/2022 Device with a working camera? Not on file Sex and Gender Information Value Date Recorded Sex Assigned at Not on file Legal Sex Male 8:13 AM EST Gender Identity Not on file Sexual Orientation Not on file Last Filed Vital Signs Vital Sign Reading Time Taken Comments Blood Pressure - - Pulse - - Temperature - - Respiratory Rate - - Oxygen Saturation - - Inhaled Oxygen Concentration - - Weight 86.2 kg (190 lb) 03/02/2019 8:32 AM EST Height 182.9 cm (6') 03/02/2019 8:32 AM EST Body Mass Index 25.77 03/02/2019 8:32 AM EST Plan of Treatment Health Maintenance Due Date Last Done Comments CREATININE LEVEL 1954 LIPID PANEL 1954 POTASSIUM LEVEL 1954 DEPRESSION SCREENING 1966 HEPATITIS C SCREENING 02/21/1972 COLOGUARD 1999 COLONOSCOPY 1999 COLORECTAL CANCER SCREENING 1999 FIT TEST 1999 FOBT 1999 SIGMOIDOSCOPY 1999 VIRTUAL COLONOSCOPY 1999 PNEUMOCOCCAL VACCINES (50+ years) (1 of 1 - PCV) 02/21/2004 ZOSTER VACCINES (1 of 2) 02/21/2004 Adult Td,Tdap Booster 04/04/2023 04/04/2013 , 06/14/2003 COVID-19 VACCINE (3 - 2023-2 5 season) 2023 07/04/2020, 06/06/2020 RSV VACCINE (1 - 1-dose 75+ series) 2029 SMOKING STATUS SCREENING (On ce After 26 Yrs) Completed 03/19/2019 HEPATITIS A VACCINES Aged Out No long er eligible based on patient's age to complete this topic HIB VACCINES Aged Out No longer eligi ble based on patient's age to complete this topic MENINGOCOCCAL VACCINES (ACWY) Aged Out No longer eligible based on patient's age to complete this topic MENINGOCOCCAL VACCINES (B) Aged Out N o longer eligible based on patient's age to complete this topic Medical Devices Not on file Insurance [place] MEDIC[place] HMO BLUE [place]PLAC[place] [address] [place] [address] MEDICARE HMO BLUE REPLACEMENT MEDICARE HMO BLUE [place]AC[place] [address] MEDICARE HMO BLUE REPLACEMENT MEDICARE HMO BLUE REPLACEMENT MEDICARE O BLUE REPLACEMENT MEDICARE HMO BLUE RE[place]AC[place] BL[place]AC[place] Care Teams Process Helper Relationship Specialty Start Date End Date Joe Quigley MD [address] [place] [address] PCP - General Internal Medicine 03/02/19 Additional Source Comments The information contained in this document represents components of the legal health record. It is not the complete legal health record.[facility]
--- OUTSIDE RECORDS SUMMARY | 2024-10-30 11:40 | XMS_ITS | Clinical Summary ---
Author Organization [facility] [address] [place] [address] [address] [facility] [place] [address] Phone Care Team Providers Care Grain Processor Name Role Phone Joe Quigley MD Primary Care Provider [phone] Allergies No known active allergies Medications MULTIVITAMIN ORAL Take 1 Tablet by mouth daily. Active atorvastatin (LIPITOR) 20 mg tablet Take 1 tablet (20 mg total) by mouth 1 (one) time each day. 90 tablet 3 01/30/2024 Active lisinopriL (PRINIVIL,ZESTRI L) 5 mg tablet Take 1 tablet (5 mg total) by mouth 1 (one) time each day. 90 each 3 01/30/2024 Active Active Problems Problem Noted Date Diagnosed [...] syncope 12/21/2021 Coronary artery disease invo lving paimiut coronary artery of paimiut heart with angina pectoris (CMS/HCC V24) 09/01/2016 Overview (01/26/2024): Last Assessment & Plan: Patient continues to endorse symptoms reminiscent to those prior to his PCI in 2016. He did recently have a normal stress [...] Encounters Date Type Department Care Team Description 08/10/2024 9:00 AM EDT Office Visit Adult Medicine [address] [address] Joe Quigley MD Hyperglycemia (Primary Dx); Prostate nodule; Routine general medical examination at a health care facility from Last 3 Months Immunizations Name Administration [...] Date Comments H/O shoulder surgery 01/22/2015 DX:H/O pavelu mervat surgery; COMMENT: After fall, Dr. Chavarria Family [...] care for your loved ones. For example, child welfare consultant or elderly care for an older adult? [...] at Not on file Legal Sex Male 6:14 AM EST Gender Identity Not on file Sexual Orientation Not on file Obstetrics History Last Filed Vital Signs Vital Sign Reading Time Taken Comments Blood Pressure 112/76 08/10/2024 8:55 AM EDT Pulse 62 08/10/2024 8:55 AM EDT Temperature 35.9 C (96.6 F) 08/10/2024 8:55 AM EDT Respiratory Rate 20 08/10/2024 8:55 AM EDT Oxygen Saturation 98% 01/30/2024 9:10 AM EST Inhaled Oxygen Concentration - - Weight 87.5 kg (193 lb) 08/10/2024 8:55 AM EDT Height 188 cm (6' 2 ) 08/10/2024 8:55 AM EDT Body Mass Index 24.78 08/10/2024 8:55 AM EDT Plan of Treatment Upcoming Encounters Date Type Department Care Team (Late st Contact Info) Description 02/11/2025 9:30 AM EST Office Visit Adult Medicine [facility] [address] [place], [place] [phone] Luciano Richey HABILITATIVE INTERVENTIONIST [address], [place] Health Maintenance Due Date Last Done Comments Pneumococcal Vaccine: 50+ Years (1 of 1 - PCV) 02/21/2004 Zoster Vaccines (1 of 2) 02/21/2004 Medicare Annual Wellness Visit 02/13/2022 DTaP,Tdap,and Td Vaccines (3 - Td or Tdap) 04/04/2023 04/04/2013, 06/14/2003 COVID-19 Vaccine (4 - 2023-2 5 season) 2023 02/23/2021, 07/04/2020, 06/06/2020 Influenza Vaccine (#1) 2024 05/07/2019 Social Influencers of Health Screening 01/25/2025 01/26/2024 Falls Risk Assessment 05/02/2025 05/02/2024 Hypertension/CHF/CAD Annual BMP Blood Test 05/03/2025 05/03/2024, 08/29/2023, 08/29/2023 Colorectal Cancer Screening: Colonoscopy 10/07/2026 10/07/2016 RSV Immunization Adult Patients (1 - 1-dose 75+ series) 2029 Cholesterol Screening (Lipid Panel) 05/03/2029 05/03/2024, 08/29/2023, 08/29/2023 Hepatitis C Screening Completed 04/04/2013 Abdominal Aortic Aneurysm (AAA) Screen Completed 05/29/2020 Depression Screening Completed 05/01/2024, 08/23/2023 HIB Vaccines Aged Out No longer eligi [...] patient's age to complete this topic Meningococcal B Vaccine Aged Out No l onger eligible based on patient's age to complete this topic RSV Immunization Patients Under 20 months Aged Out No longer eligible b ased on patient's age to complete this topic Varicella Vaccines Aged Out No longer eligible based on patient's age to complete this topic Procedures Procedure Name Priority Date/Time Associated Diagnosis Comments EXTERNAL VASCULAR ULTRASOUND 08/27/2024 EXTERNAL VASCULAR ULTRASOUND 08/27/2024 COMPREHENSIVE METABOLIC PANEL Routine 05/03/2024 8:33 AM EST Confusion LIPID PANEL WITH REFLEX TO DIRECT LDL Routine 05/03/2024 8:33 AM EST Anemia, unspecified type Elevated blood pressure reading Hyperlipidemia, unspecified hyperlipidemia type DEPRESSION SCREENING Routine 08/23/2023 US ABDOMINAL AORTA REAL TIME SCREEN STUDY AAA Routine 05/29/2020 8:43 AM EDT Encounter for general adult medical examination without abnormal findings Encounter for screening for cardiovascular disorders COLONOSCOPY Routine 10/07/2016 HEPATITIS C SCREENING Routine 04/04/2013 from Last 3 Months or Most Recently Relevant to Health Maintenance Results * External Vascular Ultrasound (08/27/2024) Only the most recent of2 resultswithin the time period is included. Anatomical Region Laterality Modality Ultrasound us Provider [facility] CV VASCULAR PROCEDURES F inal Result * Lipid panel with reflex to direct LDL (05/03/2024 8:33 AM EST) Cholesterol 122 0 - 200 mg/dL LAB CHEMISTRY METHOD 05/03/2024 10:50 AM EST [facility] Triglycerides 58 0 - 150 mg/dL LAB CHEMISTRY METHOD 05/03/2024 10:50 AM EST [facility] HDL 52 >=40 mg/dL LAB CHEMISTRY METHOD 05/03/2024 10:50 AM [facility] LDL Calculated 58 0 - 100 mg/dL LAB CHEMISTRY METHOD 05/03/2024 10:50 AM EST [facility] VLDL Cholesterol Stanislaw 11.6 mg/dL LAB CHEMISTRY METHOD 05/03/2024 10:50 AM EST [facility] Non HDL Chol. (LDL+VLDL) 70 <145 mg/dL LAB CHEMISTRY METHOD 05/03/2024 10:50 AM [facility] Chol/HDL Ratio 2.3 0.0 - 4.4 LAB CHEMISTRY METHOD 05/03/2024 10:50 AM [facility] Blood Venous blood specimen / Unknown Venipuncture / Unknown 05/03/2024 8:33 AM EST 05/03/2024 8:33 AM EST us Ike [facility] LAB BLOOD ORDERABLES Fin al Result [facility] [address] [place] [address], * (ABNORMAL) Comprehensive metabolic panel (05/03/2024 8:33 AM EST) Sodium 138 133 - 145 mmol/L LAB CHEMISTRY METHOD 05/03/2024 10:50 AM [facility] Potassium 4.5 3.5 - 5.5 mmol/L LAB CHEMISTRY METHOD 05/03/2024 10:50 AM [facility] Chloride 103 96 - 110 mmol/L LAB CHEMISTRY METHOD 05/03/2024 10:50 AM EST [facility] CO2 29 21 - 32 mmol/L LAB CHEMISTRY METHOD 05/03/2024 10:50 AM [facility] Anion Gap 6 3 - 11 LAB CHEMISTRY METHOD 05/03/2024 10:50 AM [facility] Glucose 103(H) 70 - 100 mg/dL LAB CHEMISTRY METHOD 05/03/2024 10:50 AM [facility] BUN 19 5 - 25 mg/dL LAB CHEMISTRY METHOD 05/03/2024 10:50 AM [facility] Creatinine 0.96 0.70 - 1.30 mg/dL LAB CHEMISTRY METHOD 05/03/2024 10:50 AM [facility] eGFR 85 >=60 mL/min/1. 73m2 LAB CHEMISTRY METHOD 05/03/2024 10:50 AM [facility] Comment:Calculation based on the Chronic Kidney Disease Epidemiology Collaboration (CKD-EPI) equation refit without adjustment for race. BUN/Creatinine Ratio 19.8 LAB CHEMISTRY METHOD 05/03/2024 10:50 AM [facility] Calcium 9.8 8.5 - 10.5 mg/dL LAB CHEMISTRY METHOD 05/03/2024 10:50 AM [facility] AST (SGOT) 27 10 - 42 unit/L LAB CHEMISTRY METHOD 05/03/2024 10:50 AM [facility] ALT (SGPT) 49 10 - 60 unit/L LAB CHEMISTRY METHOD 05/03/2024 10:50 AM [facility] Alkaline Phosphatase 94 42 - 121 unit/L LAB CHEMISTRY METHOD 05/03/2024 10:50 AM [facility] Total Protein 7.7 6.0 - 8.0 g/dL LAB CHEMISTRY METHOD 05/03/2024 10:50 AM [facility] Albumin 4.2 3.2 - 5.0 g/dL LAB CHEMISTRY METHOD 05/03/2024 10:50 AM [facility] Total Bilirubin 0.7 0.0 - 1.4 mg/dL LAB CHEMISTRY METHOD 05/03/2024 10:50 AM EST [facility] Blood Venous blood specimen / Unknown Venipuncture / Unknown 05/03/2024 8:33 AM EST 05/03/2024 8:33 AM EST Joe Quigley MD LAB BLOOD ORDERABLES Final Resul t [facility] [address] [place] [address], [place] [phone] * Depression Screening (08/23/2023) Depression Screening abstracted Historical Provider HEALTH MAINTENANCE Final Result * ABDOMINAL AORTA REAL TIME SCREEN STUDY AAA (05/29/2020 8:43 AM EDT) Anatomical Region Laterality Modality Ultrasound 05/01/2020 11:5 0 AM EST Narrative 05/29/2020 9:35 AM EDT History: Screening for abdominal aortic aneurysm. Ultrasound of the abdominal aorta: Some minimal atherosclerotic changes are noted. The abdominal aorta is otherwise normal [...] aneurysm. Joe Quigley MD IMG US PROCEDURES Final Result * Colonoscopy (10/07/2016) Colonoscopy no interpretation , abstracted Anatomical Region Laterality Modality Other Historical Provider HEALTH MAINTENANCE Final Result * Hepatitis C Screening (04/04/2013) Hepatitis C Screening abstracted us Historical Provider HEALTH MAINTENANCE Final Result from Last 3 Months or Most Recently Relevant to Health Maintenance Insurance BLUE CROSS [place] MEDICARE ADVANTAGE Care Teams Grain Processor Relationship Specialty Start Date End Date Joe Quigley MD [address] [place] [address] PCP - General Internal Medicine 01/07/15
== END 2024-10-30 11:22 | disposition home or self-care (01) ==
LOC: HO.HSM 10:48
PROVIDERS: PCP Internal Medicine; Referring Provider Internal Medicine; Visit Provider Psychiatry & Neurology Neurology
DX: R25.1 Tremor, unspecified (principal); G45.9 Transient cerebral ischemic attack, unspecified; R56.9 Unspecified convulsions
CPT/HCPCS: 99214

== ENCOUNTER 2024-11-21 09:05 | Outpatient (REF) | payer BC, SELFPAY ==
--- NOTE | 2024-11-21 10:21 | EEG_ITS ---
Roomed Performed:?402 Reason: convulsions, partial seizure History: hypertension, hyperlipidemia, coronary artery disease - Patient reports having 4 to 5 episodes of going blank for 45 secs and then no lasting effects afterwards. Last episode was at the beginning of the summer. Medication: lisinopril, atorvastatin Technical description Photic stimulation: completed Hyperventilation:?performed - good effort Behavioral state: Patient was cooperative and pleasant State of Consciousness: awake and sleep Skull defect: none Sedation: no Handedness: right Duration of study:?32 min ? ?47 sec Description: The waking background activity consists of a [id number] voltage 9 hertz posterior alpha frequency intermixed anteriorly with low-voltage fast frequencies. Drowsiness is characterized by diffuse theta slowing. Photic stimulation is without activation. Hyperventilation was performed with no change in background activity. Light sleep stages I entered briefly. No focal, lateralizing or paroxysmal discharges seen. Impression: Awake and briefly asleep EEG is within normal limits [facility]
--- OUTSIDE RECORDS SUMMARY | 2024-11-21 10:40 | XMS_ITS | Clinical Summary ---
Author Organization [facility] Address [address] [place] [id number] Phone Care Team Providers Care Tar Heat Exchanger Cleaner Name Role Phone Joe Quigley MD Primary Care Provider Allergies No known active allergies Medications atorvastatin [...] Adult Td,Tdap Booster 04/04/2023 04/04/2013 , 06/14/2003 INFLUENZA VACCINE (#1) 2024 05/07/2019 COVID-19 VACCINE (3 - 2024-2 6 season) 2024 07/04/2020, 06/06/2020 RSV VACCINE (1 - 1-dose [...] [place] BL[place]AC[place] MEDICARE HMO BLUE REPLACEMENT MEDICARE HMO BLUE REPLACEMENT MEDICARE HMO [place] [address] [place] [address] MEDICARE HMO BLUE REPLACEMENT MEDICARE HMO BL[place] [place] [address] MEDICARE HMO BL[place] BL[place] Care Teams Tar Heat Exchanger Cleaner Relationship Specialty Start Date End Date Joe Quigley MD [address] [place] [id number] PCP - General Internal Medicine 03/02/19 Additional Source Comments The information contained in this document represents components of the legal health record. It is not the complete legal health record.[facility]
--- OUTSIDE RECORDS SUMMARY | 2024-11-21 10:40 | XMS_ITS | Clinical Summary ---
Author Organization [facility] [address] [place] [address] Address [address] [facility] [place] [address] Phone Care Team Providers Care Binder Lockstitch Name Role Phone Jeo Quigley MD Primary Care Provider [phone] Allergies No known active allergies Medications MULTIVITAMIN [...] syncope 12/21/2021 Coronary artery disease invo lving [place] coronary artery of [place] heart with angina pectoris (CMS/HCC V24) 09/01/2016 [...] panel with reflex to direct LDL; Future Immunizations Name Administration Dates Next Due Td, [...] for your loved ones. For example, child guidance counselor or elderly care for an older adult? [...] 9:30 AM EST [facility] [address] [place], [place] [phone] Luciano Richey NP [address], [place] Health Maintenance Due Date Last Done Comments Pneumococcal Vaccine: 50+ Years (1 of 1 - PCV) 02/21/2004 Zoster Vaccines (1 of 2) 02/21/2004 Medicare Annual Wellness Visit 02/13/2022 DTaP,Tdap,and Td Vaccines (3 - Td or Tdap) 04/04/2023 04/04/2013, 06/14/2003 COVID-19 Vaccine (4 - 2024-2 6 season) 2024 02/23/2021, 07/04/2020, 06/06/2020 Influenza Vaccine (#1) 2024 [...] LAB CHEMISTRY METHOD 05/03/2024 10:50 AM EST [facility] Triglycerides 58 0 - 150 mg/dL LAB CHEMISTRY METHOD 05/03/2024 10:50 AM EST [facility] HDL 52 >=40 mg/dL LAB CHEMISTRY METHOD 05/03/2024 10:50 AM EST [facility] LDL Calculated 58 0 - 100 mg/dL LAB CHEMISTRY METHOD 05/03/2024 10:50 AM [facility] VLDL Cholesterol Stanislaw 11.6 mg/dL LAB CHEMISTRY METHOD 05/03/2024 10:50 AM [facility] Non HDL Chol. (LDL+VLDL) 70 <145 mg/dL LAB CHEMISTRY METHOD 05/03/2024 10:50 AM [facility] Chol/HDL Ratio 2.3 0.0 - 4.4 LAB CHEMISTRY METHOD 05/03/2024 10:50 AM [facility] Blood Venous blood specimen / Unknown Venipuncture / Unknown 05/03/2024 8:33 AM EST 05/03/2024 8:33 AM EST us Ike BRANHAM LAB BLOOD ORDERABLES Fin al Result [facility] [address] [place] [address], [place] [phone] * (ABNORMAL) Comprehensive metabolic panel (05/03/2024 8:33 AM EST) Sodium 138 133 - 145 mmol/L LAB CHEMISTRY METHOD 05/03/2024 10:50 AM [facility] Potassium 4.5 3.5 - 5.5 mmol/L LAB CHEMISTRY METHOD 05/03/2024 10:50 AM [facility] Chloride 103 96 - 110 mmol/L LAB CHEMISTRY METHOD 05/03/2024 10:50 AM [facility] CO2 29 21 - 32 mmol/L LAB CHEMISTRY METHOD 05/03/2024 10:50 AM [facility] Anion Gap 6 3 - 11 LAB CHEMISTRY METHOD 05/03/2024 10:50 AM [facility] Glucose 103(H) 70 - 100 mg/dL LAB CHEMISTRY METHOD 05/03/2024 10:50 AM [facility] BUN 19 5 - 25 mg/dL LAB CHEMISTRY METHOD 05/03/2024 10:50 AM [facility] Creatinine 0.96 0.70 - 1.30 mg/dL LAB CHEMISTRY METHOD 05/03/2024 10:50 AM [facility] eGFR 85 >=60 mL/min/1. 73m2 LAB CHEMISTRY METHOD 05/03/2024 10:50 AM [facility] Comment:Calculation based on the Chronic Kidney Disease Epidemiology Collaboration (CKD-EPI) equation refit without adjustment for race. BUN/Creatinine Ratio 19.8 LAB CHEMISTRY METHOD 05/03/2024 10:50 AM [facility] Calcium 9.8 8.5 - 10.5 mg/dL LAB CHEMISTRY METHOD 05/03/2024 10:50 AM [facility] AST (SGOT) 27 10 - 42 unit/L LAB CHEMISTRY METHOD 05/03/2024 10:50 AM [facility] ALT (SGPT) 49 10 - 60 unit/L LAB CHEMISTRY METHOD 05/03/2024 10:50 AM [facility] Alkaline Phosphatase 94 42 - 121 unit/L LAB CHEMISTRY METHOD 05/03/2024 10:50 AM [facility] Total Protein 7.7 6.0 - 8.0 g/dL LAB CHEMISTRY METHOD 05/03/2024 10:50 AM [facility] Albumin 4.2 3.2 - 5.0 g/dL LAB CHEMISTRY METHOD 05/03/2024 10:50 AM [facility] Total Bilirubin 0.7 0.0 - 1.4 mg/dL LAB CHEMISTRY METHOD 05/03/2024 10:50 AM [facility] Blood Venous blood specimen / Unknown Venipuncture / Unknown 05/03/2024 8:33 AM EST 05/03/2024 8:33 AM EST Joe Quigley MD LAB BLOOD ORDERABLES Final Resul t [facility] [address] [place] [address], * Depression Screening (08/23/2023) Depression Screening abstracted [...] for abdominal aortic aneurysm. Joe Quigley MD IM US PROCEDURES Final Result * Colonoscopy (10/07/2016) Colonoscopy no interpretation , abstracted Anatomical Region Laterality Modality Other Historical Provider HEALTH MAINTENANCE Final Result * Hepatitis C Screening (04/04/2013) Hepatitis C Screening abstracted Historical Provider HEALTH MAINTENANCE Final Result from Last 3 Months or Most Recently Relevant to Health Maintenance Insurance BLUE CROSS - [place] MEDICARE ADVANTAGE Care Teams Binder Lockstitch Relationship Specialty Start Date End Date Joe Quigley MD [address] [place] [address] PCP - General Internal Medicine 01/07/15
== END 2024-11-21 09:06 | disposition home or self-care (01) ==
LOC: HO.NEURO 09:05
PROVIDERS: PCP Internal Medicine; Visit Provider Psychiatry & Neurology Neurology
DX: R56.9 Unspecified convulsions (principal)
CPT/HCPCS: 95819

== ENCOUNTER → 2024-11-21 10:21 | Outpatient (BNV) | payer BC, SELFPAY | PROVIDERS: PCP Internal Medicine; Visit Provider Psychiatry & Neurology Neurology | DX: R56.9 Unspecified convulsions (principal) ==

== ENCOUNTER 2025-01-02 10:06 | Outpatient (AMB) | payer BC, SELFPAY ==
--- NOTE | 2025-01-02 10:16 | A.OFFVIS_ITS ---
Vital Signs 01/02/25 10:23 Height 6 ft Weight 191 lb BMI 25.9 BP 161/81 H Pulse 66 Intake Visit Reasons: 2m Allergies No Known Allergies Allergy (Verified 03/28/24 16:16) Medication List - Last Reconciled 01/02/25 by Cesario Perez MD atorvastatin 20 mg PO DAILY lisinopril 20 mg PO DAILY HPI Comments Details: Woke this morning with a headache for a minute and some lightheaded dizziness.Was fine last night. He has a history of mild hypertension, hyperlipidemia, and coronary artery disease, status post coronary stent x1 in 2013.? He stays active, runs 4 days a week and is in the gym 3 days a week and does 100 pushups in the morning? ( 25 X4).? 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 He reports that in the last one year, he's had 4 or 5 very brief episodes lasting less than 45 seconds, where he suddenly goes blank, feels confused and gets diaphoretic.? The last episode occurred in April 2024 while he was singing a song that he knows well and strumming on his guitar.?He had a minor episode last week. He said that he suddenly went blank, forgot the cords and the words.? Within 45 seconds the episode had cleared.? He found that he was quite diaphoretic, which lasted a little bit longer.? One episode occurred at home while he was talking to his and was similarly short in duration.? He has no after effects from the spell and now feels back to normal. He has not had any spells since last 3 months. He has?also noted intermittent fine tremor in his right hand when he is holding something.? His mother had a different kind of tremor and was diagnosed with Parkinson's disease. [facility] Medical History (Updated 10/30/24 @ 11:08 by Cesario Perez MD) TIA (transient ischemic attack) Review of Systems Const Details: Sleep:? Difficulty getting to sleepdenies.? Difficulty maintaining sleepdenies?.? Urge to move legsdenies.? Teeth grindingdenies.? Shouting or Kicking during sleep denies.? Abnormal behavior during sleepdenies.? Excessive sleepdenies.? Snoring denies.? Daytime sleepinessdenies. ???General/Constitutional:? Change in appetitedenies.? Chillsdenies.? Fatiguedenies.? Feverdenies.? Weight gaindenies.? Weight lossdenies. ???Ophthalmologic:? Blurred visiondenies.? Diminished visual acuitydenies. ???ENT:? Stuffinessdenies.? Decreased hearingdenies.? Dry mouthdenies.? Ear paindenies.? Nosebleeddenies.? Ringing in the earsdenies.? Sinus paindenies.? Sore throat denies.? Swollen glandsdenies. ???Endocrine:? Cold intolerancedenies.? Excessive thirstdenies.? Frequent urinationdenies.? Heat intolerancedenies. ???Respiratory:? Shortness of breathdenies.? Chest paindenies.? Coughdenies. ???Breast:? Breast lumpdenies.? Nipple dischargedenies. ???Cardiovascular:? Chest pain at restdenies.? Chest pain with exertiondenies.? Claudicationdenies .? Dizzinessdenies.? Fluid accumulation in the legsdenies.? Irregular heartbeat denies.? Palpitationsdenies. ???Gastrointestinal:? Abdominal paindenies.? Constipationdenies.? Diarrheadenies.? Difficulty swallowingdenies.? Heartburndenies.? Nauseadenies.? Rectal bleedingdenies. ???Hematology:? Easy bruisingdenies.? Prolonged bleedingdenies. ???Genitourinary:? Frequent urinationdenies.? Urgencydenies.? Incontinencedenies.? Erectile Dysfunctiondenies. ???Musculoskeletal:? Neck paindenies.? Back paindenies.? Muscle achesdenies.? Painful jointsdenies.? Sciaticadenies.? Weaknessdenies. ???Podiatric:? Difficulty walkingdenies.? Foot numbnessdenies. ???Neurologic:? Difficulty swallowingdenies.? Balance difficultydenies.? Coordinationnormal.? Difficulty speakingdenies.? Dizzinessdenies.? Faintingdenies.? Gait abnormality denies.? Headachedenies.? Loss of strengthdenies.? Loss of use of extremity denies.? Low back paindenies.? Memory lossdenies.? SeizuresTransient episodes of going blank.?.? Ticsdenies.? Tingling/Numbnessadmits.? Transient loss of vision denies.? Tremoradmits. ???Psychiatric:? Anxietydenies.? Auditory/visual hallucinationsdenies.? Delusionsdenies.? Depressed mooddenies.? Stressorsdenies.? Substance abusedenies.? Suicidal thoughtsdenies. Physical Exam Vital Signs: Last Vital Signs Pulse 66 01/02/25 10:23 BP 161/81 H 01/02/25 10:23 BMI result Body Mass Index 25.9 Neuro Other: Neurological: Abnormal neurological findings:??none.?Mental Status:??alert and oriented X 3,?Normal attention, orientation, memory and affect.?Cranial Nerves:??Pupils are equal, round and reactive to light. Fundoscopy shows normal disc bilaterally. External occular muscles are intact. Visual waller are full, no ptosis. Face is symmetrical, no facial weakness or droop. Facial sensations are normal. Tongue protrudes in midline. Palate elevates symmetrically. Shoulder shrugging is normal..?Motor Examination:??Normal muscle tone, bulk and strength,?No atrophy or fasciculations,?No drift of the extended upper extremities,?Deep tendon reflexes are 2+?,?Plantars are flexor?.?Motor Strength:?Proximal Muscles (out of 5):5Distal Muscles (out of 5):5Neck Flexors (out of 5):5Neck Extensors (out of 5):5Deltoid (out of 5):5Biceps (out of 5):5Triceps (out of 5):5Serratus Anterior (out of 5):5Wrist Extensors (out of 5):5APB (out of 5):5Finger Spread (out of 5):5Ileopsoas (out of 5):5Quadriceps (out of 5):5Hamstrings (out of 5):5Tibialis Anterior (out of 5):5Peronei (out of 5):5EDB (out of 5):5Gastrocnemius (out of 5):5Straight Leg Raising:??90 degrees.?Sensory Exam:??Normal light touch, temperature, pinprick, vibration and joint-position sensations?,?Rhomberg sign is absent.?Coordination:??no ataxia,?no titubation,?ydvjaj-xj-gdoh, mtqc-kmeq-bmhk test and rapid alternating movements were normal.?Gait Exam:??Within normal limits.?Cerebellar Signs:??Zktnrp-wz-legu and mxcs-ag-smvx is normal,?no dysdiadochokinesia?.?Extrapyramidal System:??No tremor, rigidity with normal facial expressions,?No bradykinesia, no bradyphrenia. Normal arm swing and posture. No propulsion or retropulsion.?Speech:??Normal,?no dysphasia or dysarthria..? Mini Mental Status Exam: Level of Consciousness:??Alert.?Orientation:??Knows correct year, month, date, day and season,?Knows correct city, county and state. Knows correct location and floor.?Registration:??Able to register 3 objects.?Attention:??Serial 7's performed accurately.?Recall:??Able to recall 3 out of 3 objects.?Language:??Normal spontaneous speech, fluency, repetition,naming, comprehension, reading and writing.?Total Score:??30/30.? General Examination: GENERAL APPEARANCE:??normal,?in no acute distress.?HEAD:?? normocephalic,?atraumatic.?EYES:??sclera non-icteric,?conjunctiva clear.?EARS:??auditory canal clear,?tympanic membrane intact, clear.?NOSE:??no lesions.?ORAL CAVITY:??gums normal,?mucosa moist,?no le sions.?THROAT:??clear.?NECK/THYROID:??no cervical lymphadenopathy,?thyroid normal,?neck supple, full range of motion,?no carotid bruit.?SKIN:??no rashes,?no significant birthmarks.?HEART:??S1, S2 normal,?no murmurs.?LUNGS:??clear anteriorly and posteriorly.?CHEST:??no gross rib deformity,?clear to auscultation.?BACK:??normal exam of spine.?EXTREMITIES:??no edema.?PERIPHERAL PULSES:??normal.?PSYCH:??alert, oriented,?cognitive function intact,?cooperative with exam.? Results Reviewed Results Reviewed: 08/28/2024 normal carotid Doppler 11/21/2024 normal awake and briefly asleep EEG Assessment & Plan Assessment & Plan (1) Physiological tremor: Code(s): R25.1 - Tremor, unspecified Category: Medical (2) TIA (transient ischemic attack): Code(s): G45.9 - Transient cerebral ischemic attack, unspecified Category: Medical Plan Make f/u with Cardiology. Continue current meds Medications: New lisinopril 20 mg PO DAILY 30 tabs 0RF Coding Level of Care Code Est Pt Level 4 (84154) Diagnoses Physiological tremor R25.1 TIA (transient ischemic attack) G45.9
[2025-01-02 10:23] VITALS: BP 161/81; PULSE 66; BMI 25.9
--- OUTSIDE RECORDS SUMMARY | 2025-01-02 12:18 | XMS_ITS | Clinical Summary ---
Author Organization [facility] [address] [place] [address] Address [address] [facility] [place] [address] Phone Care Team Providers Care Probate Judge Name Role Phone Joe Quigley MD Primary Care Provider [phone] Allergies No known active allergies Medications MULTIVITAMIN [...] syncope 12/21/2021 Coronary artery disease invo lving [place] coronary artery of [place] heart with angina pectoris (CMS/HCC V24) 09/01/2016 [...] with reflex to direct LDL; Future Immunizations Immunization Administration Dates Next Due Td, Unspecified 06/14/2003 [...] care for your loved ones. For example, summer child caregiver or elderly care for an older adult? [...] Date Recorded What is your living situation? Unrecognized valu e 01/26/2024 Sex and Gender Information Value Date Recorded [...] 9:30 AM EST Office Visit Adult Medicine [facility] [address] [place], [place] [phone] Luciano Richey NP [address] [place], [place] Health Maintenance Due Date Last Done [...] Procedure Name Priority Date/Time Associated Diagnosis Comments COMPREHENSIVE METABOLIC PANEL Routine 05/03/2024 8:33 AM [...] Recently Relevant to Health Maintenance Results * Lipid panel with reflex to direct LDL (05/03/2024 8:33 AM EST) Cholesterol 122 0 - 200 mg/dL LAB CHEMISTRY METHOD 05/03/2024 10:50 AM [facility] Triglycerides 58 0 - 150 mg/dL LAB CHEMISTRY METHOD 05/03/2024 10:50 AM EST [facility] HDL 52 >=40 mg/dL LAB CHEMISTRY METHOD 05/03/2024 10:50 AM [facility] LDL Calculated 58 0 - 100 mg/dL LAB CHEMISTRY METHOD 05/03/2024 10:50 AM [facility] VLDL Cholesterol Stanislaw 11.6 mg/dL LAB CHEMISTRY METHOD 05/03/2024 10:50 AM EST [facility] Non HDL Chol. (LDL+VLDL) [...] [facility] LAB BLOOD ORDERABLES Fin al Result [facility] [address] [place] [address], [place] [phone] * (ABNORMAL) Comprehensive metabolic panel (05/03/2024 8:33 [...] MD LAB BLOOD ORDERABLES Final Resul t [facility] [address] [place] [address], [place] [phone] * Depression Screening (08/23/2023) [facility] Depression Screening abstracted us Historical Divina [facility] MAINTENANCE Final Result * ABDOMINAL AORTA [...] Negative screening examination for abdominal aortic aneurysm. Result [facility] Joe Quigley MD [facility] [place]EDURES Final Result * Colonoscopy (10/07/2016) Colonoscopy no interpretation , abstracted Anatomical Region Laterality Modality Other Result [facility] Miles Murcia MD HEALTH MAINTENANCE Final Result * Hepatitis C Screening (04/04/2013) Hepatitis C Screening abstracted Result [facility] Miles Murcia MD HEALTH MAINTENANCE Final Result from Last 3 Months or Most Recently Relevant to Health Maintenance Insurance BLUE CROSS - [place] MEDICARE ADVANTAGE Care Teams Probate Judge Relationship Specialty Start Date End Date Joe Quigley MD [address] [place] [address] PCP - General Internal Medicine 01/07/15
--- OUTSIDE RECORDS SUMMARY | 2025-01-02 12:18 | XMS_ITS | Data Portability ---
Author Organization [facility] [address] Address [address] [place] [address] Care Team Providers Care Fabric Stretcher Name Role Phone [facility] Care Provider Assessment No assessment recorded. Plan of Treatment Reminders Order Date Submit Date Provider Last Modified By Organization Details Last Modified Time Details Appointments None recorded. Lab None recorded. Referral None recorded. Procedures None recorded. Surgeries None recorded. Imaging XR, chest, 2 view 2022 023 [facility], [address] [place] [address], [address], 3 16:24:21 Medication Orders azithromyci n 250 mg tablet 2022 023 [id number], [address] [place], [address], 3 14:48:39 albuterol sulfate HFA 90 mcg/actuati on aerosol inhaler 2022 023 [id number], [address] [place], [address], 3 14:48:39 Tessalon Perles 100 mg capsule 2022 023 [id number], [address] [place], [address], 3 14:48:39 Patient TargetsNo targets recorded. Patient Instructions Encounter Date Encounter Id Patient Instructions Last Modified By Organization Details Last Modified Time 03/20/2022 [id number] cough: care instructions [email or web address] Not available 03/20/2022 14:47:19 Reason for Referral None Reported. Results Created Date Observation Date Name Description Value Unit Range Abnormal Flag Note LastModifiedBy Organization Detail LastModifiedTime 03/20/19 23 03/20/2022 XR, chest , 2 view No observ ation record ed. [email or web address] [facility] [address] [facility] [place], [address], 03/20/2022 17:12:27 03/22/19 23 imagi ng/di agnos tic resul t No observ ation record ed. [email or web address] Not Available 2022 08:58:16 Result Notes None recorded. Problems Name Problem SNOMED Code Status Onset Date Resolution Date Notes Provider Name and Address Organization Details Recorded Time Hypercholestero lemia 20137167 Active 2022 NADJA DEPINTO null, [place] - [facility] 3 14:20:41 Hypertensive disorder 22908467 Active 2022 NADJA DEPINTO null, [place] - [...] height Body mass index (BMI) Body weight Pain severity - 0-10 verbal numeric rating [Score] - Reported Body temperature Respiratory rate Oxygen saturation Oxygen saturation in Arterial blood by Pulse oximetry Heart rate Systolic And Diastolic Provider Name and Address Organization Details Last Updated DateTime 182.88 cm 26 kg/m2 07802.7 4 g 0 97.6 [degF] 18 /min 99 % 99 % 84 /min 170/89 mm[Hg] NADJA PALMA [facility] 14:22:51 Social History Question Answer Notes LastModified by [facility] Details LastModified Time Tobacco Smoking Status Never Smoker NADJA merrill [place] - [facility] 03/20/2022 14:21:41 Have You Recently Traveled Abroad? No Information not available 03/20/2022 Sex: Unknown Functional Status Question Answer Note LastModified by [facility] Details LastModified Time Do you use any [...] Diagnosis SNOMED-CT Code Diagnosis ICD10 Code Diagnosis IMO Codes Diagnosis Note [id number] [address] [facility] [place] [address] 02/18/2017 08:44:04 02/18/2017 09:08:19 [id number] [address] [place] [address] 02/27/2019 12:21:22 02/27/2019 13:37:50 [id number] [address] [place] [address] 02/03/2017 09:22:09 02/03/2017 09:57:40 [id number] [address] [place] [address] 01/06/2016 12:32:40 01/06/2016 13:40:27 [id number] [address] [address] [place] [address] 04/27/2016 10:03:01 04/27/2016 10:53:55 [id number] [address] [place] [address] 01/06/2016 12:36:13 01/06/2016 13:40:31 [id number] Andrea Lim DO [address] [place] [address] 03/20/2022 13:40:24 03/20/2022 15:24:27 Cough [id number] R05.9 Given Hx and Sx will Rx [...] Samuel Member ID Guarantor Name 03/20/2022 1 [facility]: MEDICARE HMO BLUE (MEDICARE REPLACEMENT HMO) [id number] Daryn Shaver [id number] Daryn Shaver Notes Date Note Type Note Provider Name and Address Organization Details Recorded Time 03/20/2022 text/html CongestionReport ed by Patient CoughReported by [email or web address] yo maleHad sinus problems 1 wk ago that went away and now has cough with brown phlegm, weak and congestion x 5 days. Had neg COVID yesterday at home repeat BP 164/81 non [place] asthma No feverNo chillsNo difficulty breathing or respiratory distressNo CPNo ear painNo sore throatNo Abdominal painNo nauseaNo vomitingNp diarrheaNo myalgiaNo fatigueNo rashNo HANo dizzinessNo recent travelNo known sick contactsROS as noted in the HPI Andrea Lim, DO [address] [place], [address], [place] - [facility] 03/20/2022 15:11:37
--- OUTSIDE RECORDS SUMMARY | 2025-01-02 12:18 | XMS_ITS | Clinical Summary ---
Author Organization [facility] Address [address] [place] [address] Phone Care Team Providers Care Magazine Grinder Loader Name Role Phone Joe Quigley MD Primary Care Provider [phone] Allergies No known active allergies Medications atorvastatin [...] HMO BLUE REPLACEMENT MEDICARE HMO BLUE [place] [address] [place] [address] MEDICARE HMO BLUE REPLACEMENT MEDICARE HMO BLUE [place] [address] [place] [address] MEDICARE HMO BLUE REPLACEMENT [place] MED[place] BLUE REPLAC[place] BLUE REPLACEMENT Care Teams Magazine Grinder Loader Relationship Specialty Start Date End Date Joe Quigley MD [address] [place] [id number] PCP - General Internal Medicine 03/02/19 Additional Source Comments The information contained in this document represents components of the legal health record. It is not the complete legal health record.[facility]
== END 2025-01-02 10:29 | disposition home or self-care (01) ==
LOC: HO.HSM 10:07
PROVIDERS: PCP Internal Medicine; Visit Provider Psychiatry & Neurology Neurology
DX: R25.1 Tremor, unspecified (principal); G45.9 Transient cerebral ischemic attack, unspecified
CPT/HCPCS: 99214